=== PATIENT | female | born 1930 | race Caucasian/White ===

== ENCOUNTER → 2016-10-22 | Outpatient (CLI) | payer MEDICARE, BC ==
[~2016-10-22] MED LIST: ACETAMINOPHEN PO; ACETAMINOPHEN325 MG PO; ALDACTAZIDE 25/1 TA1 PO; ALDACTAZIDE PO; ALLOPURINOL5 GM PO; AMIODARONE PO; AMOXICILLIN500 M1; ARICEPT5 M1 PO; ARICEPT5 MG PO; ASA PO; ASPIRIN PO; ASPIRIN81 M1 PO; ASPIRIN81 M2 PO; B COMPLEX1 TAB.S1 PO; B-12 IJ; BENADRYL PO; BENADRYL25 MG PO; CALCIUM + D PO; CENTRUM SILVER PO; CHONDROITIN; CIPRO PO; CITRACAL + D CA1 TA1 PO; CLARITIN10 M3 PO; CLARITIN10 MG PO; COLACE PO; CORDARONE200 M1 PO; COREG3.125 MG PO; COUMADIN PO; COUMADIN1 MG PO; COUMADIN3 MG PO; CRANBERRY; CRANBERRY 400 M1 TA1 PO; CRANBERRY CONCENTRAT PO; CRANBERRY TABL1 EACH PO; DOCUSATE SODIU100 MG PO; DOK100 MG PO; FLORASTOR250 M1 PO; FUROSEMIDE40 MG PO; GENESUPP-5001 CAP PO; GLUCOSAMINE; GLUCOSAMINE & C1 CAP PO; GLUCOSAMINE/CHONDRO PO; GUAIFENESIN200 M1 PO; HYDROCODONE; HYDROCODONE-APA1 T56 PO; IMDUR-ER30 M2 PO; IMDUR30 MG PO; K-DUR20 ME1 PO; K-DUR20 ME2 PO; KENALOG IN ORABA5 GM TOP; KLOR-CON PO; LASIX PO; LASIX20 MG PO; LEVAQUIN PO; LIPITOR PO; LIPITOR40 MG PO; LOPRESSOR PO; MEDROL DOSEPAK4 MG; MILK OF MAGNESIA PO; NITROGLYGERIN0.4 MG SL; NITROGYLCERIN SUBLINGUAL; NITROQUICK0.4 MG SL; OXYBUTYNIN10 MG/BOTT PO; PERIDEX480 ML PO; PLAVIX PO; PROBIOTIC1 EAC1 PO; PROBIOTIC1 EAC3 PO; PYRIDIUM PO; SIMVASTATIN20 MG PO; STOOL SOFTENER100 M1 PO; TOBRADEX ST EYE5 ML OP; TRAMADOL HCL50 M2 PO; ULTRAM PO; VASOTEC PO; VASOTEC10 MG PO; VASOTEC20 MG PO; VITAMIN B-1000 MCG/1 INJ; VITAMIN B12 IV/IM; VITAMIN D-32000 UNI1 PO; VITAMIN D31000 UNI1 PO; ZESTRIL10 M2 PO; ZOCOR PO; ZOCOR20 MG PO; ZOCOR5 MG PO; ZOFRAN ODT4 MG PO; ZYLOPRIM100 MG DOB; ZYLOPRIM100 MG PO; [UNRECOGNIZED DRUG - OTHER] PO
[2016-10-22 11:11] LABS: INR 2.1; PROTHROMBIN TIME (PATIENT) 23.4 SECONDS (9.5-12.4)
== END | disposition home or self-care (01) ==
LOC: SLAB 10:31
PROVIDERS: Internal Medicine
DX: Z51.81 Encounter for therapeutic drug level monitoring (principal); I48.91 Unspecified atrial fibrillation; Z79.01 Long term (current) use of anticoagulants
CPT/HCPCS: 36415; 85610